=== PATIENT | male | born 1965 | race Caucasian/White ===

== ENCOUNTER 2025-11-20 07:59 | Emergency (ER) | payer OTHER, SELFPAY ==
[2025-11-20 08:13] VITALS: BP 132/87
[2025-11-20 08:42] VITALS: BMI 23.2
--- NOTE | 2025-11-20 08:52 | ED.GENMED ---
History of Present Illness
General
Chief Complaint: Back Pain
Time Seen by Provider: 11/20/25 08:26
History of Present Illness
History of Present Illness:
Eddie is a 60-year-old male with past medical history of enlarged prostate currently undergoing workup who presents complaining of low back pain that radiates down his right leg x 3 weeks. He was seen at [facility] had x-rays completed and
were negative. They told him to go to the ER if his pain did not improve. Pain worsened again this morning for evaluation. Denies any bladder or bowel changes. Pain is worse in the morning and improves throughout the day.
Phy Exam
General Physical Exam
General Presentation: well appearing and no apparent distress
General Skin: warm and dry
General Habitus: normal
General Mental: alert
General Hydration: appears well hydrated
ENT Exam
ENT Exam: EOMI, pharynx normal, neck supple and normocephalic
Eye Exam
Eye Exam: PERRL, cornea clear and conjunctiva normal
Cardiovascular Exam
Cardiovascular Exam: regular rate/rhythm, no edema, no murmur and normal peripheral pulses
Pulmonary Exam
Pulmonary Exam: lungs clear, no respiratory distress, no rales, no crackles, no rhonchi, no stridor, no wheezing and no cough
Gastrointestinal Exam
Gastrointestinal Exam: normal bowel sounds, non tender, soft, no organomegaly, no pulsatile mass and non distended
Neurological Exam
Neurological Exam: alert, oriented x3, no motor deficits and speech normal
Musculoskeletal Exam
Musculoskeletal Exam: full ROM, back pain and no edema
Skin Exam
Skin Exam: normal color, warm/dry, no rash and no petechia
Psychiatric Exam
Psychiatric Exam: normal mood/affect
Course
Orders/Labs/Results
Orders:
Orders
11/20/25 08:43
CT Abd/pel Without Iv Or Oral Urgent
Comment:
Reason For Exam: low back pain radiates to legs
11/20/25 09:56
MethylPREDNISolone [Medrol] 4 mg PO NOW STA
Vital Signs
Initial and Last Documented VS:
Initial Vital Signs
Temp Pulse Resp BP Pulse Ox
37.2 C 80 18 132/87 99
11/20/25 08:13 11/20/25 08:13 11/20/25 08:13 11/20/25 08:13 11/20/25 08:13
Last Documented Vital Signs
Temp Pulse Resp BP Pulse Ox
37.2 C 80 18 132/87 99
11/20/25 08:13 11/20/25 08:13 11/20/25 08:13 11/20/25 08:13 11/20/25 08:54
MDM/Problems Addressed
Differential Diagnosis Includes:
CT abdomen pelvis completed and shows no acute fractures or retropulsion. There is evidence of degenerative joint disease at L4-L5 which caused the patient's pain. He will follow-up with [facility] as an outpatient for continued evaluation and
possible outpatient MRI. Will give short course of steroids to likely improve any inflammation associated pain patient is having. Discussed multimodal pain regimen with patient and he is in agreement with the plan.
*Pulse Oximetry
SaO2: 99
Oxygen Mode of Delivery: Room air
Patient hypoxic: no
*Critical Care Note
Total Time (30-74mins, 75-104mins- exclusive of procedures): Not Applicable
ED Attending Note
-
Portions of this chart may have been created with voice recognition software.� Occasional wrong word or��sound alike� substitutions may have occurred due to the inherent limitations of voice recognition software.
Discharge Plan
Departure
Patient Disposition: Home (Routine Discharge)
Date of Disposition: 11/20/25
Time of Disposition: 09:59
Patient with high blood pressure during this ER visit?: No
Discharge Problem:
Low back pain, Sciatica, Degenerative joint disease
Instructions: Low back pain - ED (DC)
Prescriptions:
New
methylprednisolone [Medrol (Esteban)] 4 mg tablets,dose pack
See Rx Instructions .ROUTE .COMPLEX Qty: 21 0RF
Rx Instructions:
for 6 days
Referrals:
Eddie Nicole MD [Family Provider, Internal Medicine]
Activity Restrictions/Additional Instructions:
You should continue to take Tylenol, naproxen, muscle relaxer for your pain. Can use a lidocaine patches or IcyHot patches as well. Follow-up with [facility] for consideration of an outpatient MRI if your pain persist. Prescription for steroid
Dosepak has been sent to your pharmacy. Is important to take the entire pack even if you begin to feel better.
Interventions
Interventions:
*General Assessment Last Done: 11/20/25 08:42
*Neglect/Abuse Screening Last Done: 11/20/25 08:42
*ED COVID-19 Vaccine History Last Done: 11/20/25 08:42
*ED Influenza Vaccine History Last Done: 11/20/25 08:42
[facility] Fall Risk Assessment Tool Last Done: 11/20/25 08:42
*Risk Screen - Suicide (C-SSRS) Last Done: 11/20/25 08:42
ED-Musculoskeletal Assessment Last Done: 11/20/25 08:42
Discharge Date and Time
Print Language: GERMAN
--- NOTE | 2025-11-20 10:10 | EDRN ---
Reviewed discharge instructions with patient. Verbalized understanding. Waiting for pharmacy to send Medrol dose.
[2025-11-20] MEDS: MEDROL 4 MG PO (10:48)
[2025-11-20 10:51] VITALS: BP 153/83
== END 2025-11-20 10:52 | disposition home or self-care (01) ==
LOC: EMR 07:59
PROVIDERS: EMERGENCY PHYSICIAN Emergency Medicine; FAMILY PHYSICIAN Internal Medicine
DX: M54.41 Lumbago with sciatica, right side (principal); M47.816 Spondylosis without myelopathy or radiculopathy, lumbar region; N40.0 Benign prostatic hyperplasia without lower urinary tract symptoms
CPT/HCPCS: 99284; 74176